=== PATIENT | male | born 1990 | race Hispanic/Latino ===

== ENCOUNTER 2022-06-20 19:54 | Emergency (ER) | payer OTHER ==
[~2022-06-20] VITALS: Ht 160 cm; Wt 61.2 kg
[~2022-06-20 19:54] MED LIST: CLINDAMYCIN HC150 MG PO; MOBIC15 MG PO; NORCO 5-325 TA1 EACH PO; PERCOCET 5-3251 EACH PO
[2022-06-21 00:16] VITALS: BP 119/82
== END 2022-06-21 00:18 | disposition home or self-care (01) ==
LOC: ED 19:54
DX: F41.9 Anxiety disorder, unspecified (principal)
CPT/HCPCS: 36415; 80053; 81003; 85025; 99284

== ENCOUNTER 2023-03-05 20:59 | Emergency (ER) | payer OTHER ==
[~2023-03-05] VITALS: Ht 160 cm; Wt 58.0 kg
[2023-03-05 21:13] LABS: BASOPHILS 0.5 % (0-2); HEMATOCRIT 42.8 % (35.0-50.0); HEMOGLOBIN 14.7 g/dL (12.0-18.0); LYMPHOCYTES 31.8 % (24-44); MCH 30.5 (27-36); MCHC 34.4 g/dl (30-36); MCV 88.8 fl (81-99); MONOCYTES 8.2 % (0-12); NEUTROPHILS 58.5 % (39-80); PLATELET COUNT 305 K/uL (140-440); RBC 4.82 M/ul (4.3-5.7); RDW 12.8 (10.5-15.0)
[2023-03-05 21:33] LABS: ALBUMIN/GLOBULIN RATIO 0.85 (1.1-2.4); ALKALINE PHOSPHATASE 128 U/L (46-116); ALT (SGPT) 18 U/L (14-59); ANION GAP 10.5 (7-21); AST (SGOT) 18 U/L (15-37); BILIRUBIN, TOTAL 0.3 ng/dL (0.2-1.0); BUN/CREATININE RATIO 14.28 (6.0-28.6); CALCIUM 8.8 mg/dL (8.5-10.1); CARBON DIOXIDE 31 mmol/L (21-32); CHLORIDE 103 mmol/L (98-107); CREATININE, SERUM 0.77 mg/dL (0.70-1.30); GLOMERULAR FILTRATION RATE,EST 124 mL/min (>60); POTASSIUM 3.5 mmol/L (3.5-5.1); PROTEIN, TOTAL 8.7 g/dL (6.4-8.2); UREA NITROGEN 11 mg/dL (7-18)
[2023-03-05 21:54] LABS: INFLUENZA B NAA NEGATIVE (NEGATIVE); RESPIRATORY SYNCYTIAL VIR NAA NEGATIVE (NEGATIVE)
[2023-03-05] MEDS ORDERED: CYCLOBENZAPRINE10 MG PO (21:59)
[2023-03-05 22:17] VITALS: BP 120/74
--- NOTE | 2023-03-06 22:32 | EKG ---
[facility] [address] [facility] [place] [address] Signed Normal sinus rhythm Normal ECG No previous ECGs available Confirmed by Robert Wright MD () on 03/06/2023 10:32:46 PM Electronically Signed By: ROBERT WRIGHT MD 03/06/232231 PATIENT NAME: JANEE CHAPMAN Electrocardiogram DATE OF : 89 PHYSICIAN: ROBERT WRIGHT MD REPORT #: [id number] REPORT IS CONFIDENTIAL AND NOT TO BE RELEASED WITHOUT AUTHORIZATION
== END 2023-03-05 22:17 | disposition home or self-care (01) ==
LOC: ED 20:59
PROVIDERS: Family Medicine
DX: R07.89 Other chest pain (principal); Z11.52 Encounter for screening for COVID-19
CPT/HCPCS: 36415; 71045; 80053; 84484; 85025; 85379; 87502; 93005; 93010; 94640; 99285-25; U0002